=== PATIENT | female | born 1990 | race Caucasian/White ===

== ENCOUNTER 2024-02-12 15:19 | Emergency (ER) | payer OTHER, SELFPAY ==
[2024-02-12 15:31] VITALS: BP 128/78; PULSE 70; RESP 87; TEMP 36.6; O2SAT 96; BMI 22.4
[2024-02-12 18:44] VITALS: BP 121/70; PULSE 70; RESP 20; O2SAT 100
[2024-02-12] MEDS: LIDOCAINE 1% 20 ML 3 ML SUBCUT (18:44)
--- NOTE | 2024-02-12 18:52 | ED_ITS ---
HPI - Wound/Laceration <Jovita Alexander PA-C - Last Filed: 02/13/24 13:42> General Chief Complaint: Wound/Laceration Stated Complaint: lt hand laceration Time Seen by Provider: 02/12/24 18:04 Source: patient Mode of arrival: Ambulatory History of Present Illness HPI narrative: Left-handed female laceration with 10 ft piece of metal sheeting. Patient was holding the metal sheeting, she was on a ladder. She lost hold of the metal sheeting, it started to slip, she grabbed the metal sheeting and it sliced her left hand. She did not want to fall off the ladder, she did not want to drop the shooting, and ended up slicing the inside of her left hand. Patient is left-hand dominant. Large amount of bleeding. Wash the hand prior to being seen here in the emergency department. Up-to-date on her immunizations. Last tetanus within the last 10 years. No other further complaints. Related Data Previous Rx's Medication Instructions Recorded cephalexin 500 mg capsule 500 mg PO QID 10 days #40 caps 02/12/24 Allergies Allergy/AdvReac Type Severity Reaction Status Date / Time doxycycline Allergy Mild Hives Verified 02/12/24 15:37 morphine Allergy Mild Hives Verified 02/12/24 15:37 Review of Systems <Jovita Alexander PA-C - Last Filed: 02/13/24 13:42> Review of Systems Narrative: Negative except as above Musculoskeletal Comments: Patient sustained a laceration to the left hand in between the thumb and 1st finger. From corrugated metal. Patient History <Jovita Alexander PA-C - Last Filed: 02/13/24 13:42> Social History Smoking Status: Never smoker Smoking Status: Never smoker alcohol intake frequency: 0-2 drinks per day Substance Use Type: does not use Exam <Jovita Alexander PA-C - Last Filed: 02/13/24 13:42> Initial Vital Signs Initial Vital Signs: Vital Signs Temperature 97.8 F 02/12/24 15:31 Pulse Rate 70 02/12/24 15:31 Respiratory Rate 87 H 02/12/24 15:31 Blood Pressure 128/78 10/09/24 15:31 Pulse Oximetry 96 02/12/24 15:31 Oxygen Delivery Method Room Air 02/12/24 15:31 Reviewed Const General: cooperative, healthy appearing, comfortable, well developed, well groomed, No acute distress, No in distress and anxious Eyes Pupils: PERRL EOM: EOM intact bilaterally Skin Wounds: wounds noted Other: Patient sustained a clean laceration to the left hand in between the thumb and 1st finger from corrugated aluminum siding. The wound is clean, not jagged, currently not bleeding. Direct pressure was applied prior to being seen here in the emergency room department. The wound is probably 5 cm or 2 in in length. Single thickness with some fat showing through. Not impairing range of motion. Neuro General: patient alert, patient awake, patient oriented x3, oriented and gait normal Cranial Nerves: CN's II-XI intact bilaterally Cognition: normal cognition Speech: speech normal Gait: normal gait Extrem Other: Range of motion, strength, pulses, cap refill preserved in the upper and lower extremities. Left hand examination patient can hitchhike with her thumb, patient can move her thumb across her hand. Cap refill is preserved. Range of motion is impaired due to discomfort and pain. Laceration is noted in between the left thumb and 1st finger. A 5 cm or 2 in in length. Bleeding is currently controlled. Cap refill is preserved. Pulses are present. <Peter Brady MD - Last Filed: 02/13/24 18:54> Initial Vital Signs Initial Vital Signs: Vital Signs Temperature 97.8 F 02/12/24 15:31 Pulse Rate 70 02/12/24 15:31 Respiratory Rate 87 H 02/12/24 15:31 Blood Pressure 128/78 02/12/24 15:31 Pulse Oximetry 96 02/12/24 15:31 Oxygen Delivery Method Room Air 02/12/24 15:31 Procedures <Jovita Alexander PA-C - Last Filed: 02/13/24 13:42> Laceration Repair Laceration 1: Time of procedure: 18:53 Site: hand (Left hand in between the thumb and 1st finger in the crease) Side (If applicable): left Size (cm): 5 Description: linear and clean Depth: simple, single layer Local Anesthetic: lidocaine 1% Amount of anesthesia used (mL): 7 Pre-repair: wound explored, irrigated extensively and deep structures intact Skin layer closed with: nylon Skin layer suture size: 4-0 Number of sutures: 1 Technique: running Scores <Jovita Alexander PA-C - Last Filed: 02/13/24 13:42> GCS Citation: 15 Course <Jovita Alexander PA-C - Last Filed: 02/13/24 13:42> Orders Ordered: Discontinued Medications Lidocaine HCl (Lidocaine 1% 20 Ml) 3 ml SUBCUT NOW ONE Stop: 02/12/24 18:06 Last Admin: 02/12/24 18:44 Dose: 3 ml Documented By: MPO Vital Signs Vital signs: Vital Signs - 8 hr 02/12/24 15:31 02/12/24 18:44 Temperature 97.8 F Pulse Rate 70 70 Respiratory Rate 87 H 20 Blood Pressure 128/78 121/70 Pulse Oximetry 96 100 Oxygen Delivery Method Room Air Room Air Reviewed <Peter Brady MD - Last Filed: 02/13/24 18:54> Orders Ordered: Discontinued Medications Lidocaine HCl (Lidocaine 1% 20 Ml) 3 ml SUBCUT NOW ONE Stop: 02/12/24 18:06 Last Admin: 02/12/24 18:44 Dose: 3 ml Documented By: MPO Vital Signs Vital signs: Vital Signs - 8 hr 02/12/24 15:31 02/12/24 18:44 Temperature 97.8 F Pulse Rate 70 70 Respiratory Rate 87 H 20 Blood Pressure 128/78 121/70 Pulse Oximetry 96 100 Oxygen Delivery Method Room Air Room Air MDM - Wound/Laceration <Jovita Alexander PA-C - Last Filed: 02/13/24 13:42> [facility] Narrative Medical decision making narrative: Patient is a pleasant 34-year-old female presents to the emergency room department with a laceration in between her thumb and 1st finger on her left hand. Left-hand dominant. She cut her hand on clean corrugated metal sheeting for her roof. Direct pressure was applied prior to being seen here in the emergency room department. Up-to-date on her immunizations. No other further complaints. Laceration repair as above. Patient deferred after laceration repair. Follow up information given to the patient. Dressing applied. Sutures out in 7-10 days. Patient placed on oral antibiotics. Patient tolerated the procedure well. Discharged in stable condition. Differential diagnosis. Hand laceration. Discharge Plan Departure Patient Disposition: Home Clinical Impression: Laceration Activity Restrictions/Additional Instructions: Keep the area clean and dry, watch for any signs of infection. [id number] Tylenol for discomfort pain. Elevate the hand. The more it hangs the more it is going to throb. Prescription has been sent to [facility]. Please watch for any signs of infection such as redness, drainage, pus, streaking. Return to the emergency room department if any of the symptoms present. Stitches need to come out in 7-10 days, stitches can come out in the walk-in clinic, urgent care, your primary care doctor's office, or the emergency room department. I have placed a running stitch, it has 1 not at 1 end, and 1 not at the other end. I used a stitch because it tends to work better on places that there is a lot of movement, and does not pull through or cause a lot of scarring. Prescriptions: New cephalexin 500 mg capsule 500 mg PO QID 10 Days Qty: 40 0RF Stand Alone Forms: Patient Portal/API ED Sign-out <Peter Brady MD - Last Filed: 02/13/24 18:54> [facility]: I was immediately available in the department for consultation. This documentation has been reviewed and I agree with assessment and plan. Supervised by Peter Brady MD
== END 2024-02-12 18:59 | disposition home or self-care (01) ==
PROVIDERS: Emergency Provider Physician Assistant
DX: S61.412A Laceration without foreign body of left hand, initial encounter (principal); W26.8XXA Contact with other sharp object(s), not elsewhere classified, initial encounter
CPT/HCPCS: 12002; 99281; 99283

== ENCOUNTER → 2024-06-19 16:55 | Outpatient (CLI) | payer OTHER, SELFPAY ==
--- NOTE | 2024-06-19 16:57 | DI.RAD.S_ITS ---
PROCEDURE: XR CHEST 2V INDICATIONS: Shortness of breath TECHNIQUE: 2 views of the chest were acquired. COMPARISON: None. FINDINGS: Surgical changes and devices: Breast implants. Lungs and pleura: Lungs are clear. No pleural effusions or pneumothorax. Mediastinum: Mediastinal contours are normal. Heart size is normal. Bones and chest wall: No suspicious bony abnormalities. Soft tissues appear unremarkable. IMPRESSION: No acute cardiopulmonary abnormality is seen. Dictated by: Nitin Salcido M.D. on 06/19/2024 at 20:26 Approved by: Nitin Salcido M.D. on 06/19/2024 at 20:27
== END ==
LOC: RAD 16:57
PROVIDERS: Referring Provider Registered Nurse; Visit Provider Registered Nurse
DX: R06.02 Shortness of breath (principal)
CPT/HCPCS: 71046